=== PATIENT | female | born 1940 | race Caucasian/White ===

== ENCOUNTER 2019-01-09 03:38 | Emergency (ER) | payer MEDICARE ==
[~2019-01-09] VITALS: Ht 162.6 cm; Wt 63.5 kg
[2019-01-09] MEDS ORDERED: SODIUM CHLORIDE 0.9% 1,000 ML IV ONE (04:00)
[2019-01-09 05:51] LABS: Basophils # (auto) 0 uL; Basophils % (auto) 0.5 % (0.0-2.0); Eosinophils # (auto) 0.1 uL; Eosinophils % (auto) 1.4 % (0.0-7.0); Hematocrit 40.3 % (36.0-46.0); Lymphocytes # (auto) 0.2 uL; Lymphocytes % (auto) 2.9 % (10.0-50.0); Mean Corpuscular Hgb Conc. 32.3 g/dL (32.0-36.0); Mean Corpuscular Volume 83.6 fL (80.0-100.0); Monocytes # (auto) 0.4 uL; Monocytes % (auto) 6.3 % (0.0-12.0); Neutrophils # (auto) 5.6 uL; Neutrophils % (auto) 88.9 % (37.0-80.0); Platelet Count (auto) 148 10^3/uL (140-450); Red Blood Cells 4.82 10^6/uL (4.0-5.20); White Blood Cell 6.3 10^3/uL (4.4-10.8)
[2019-01-09 06:06] LABS: Chloride 109 mmol/L (98-107); INR 0.98 (0.9-1.15); Partial Thromboplastin Time 29.6 sec (23.78-33.04); Prothrombin Time 10.5 sec (9.27-12.13); Sodium 141 mmol/L (136-145)
[2019-01-09 06:09] LABS: Albumin 2.8 g/dL (3.4-5.0); Anion Gap 8 (5-15); Blood Urea Nitrogen 14 mg/dL (7-18); Carbon Dioxide 24 mmol/L (21-32); Glucose 88 mg/dL (74-106)
[2019-01-09 06:14] LABS: Alanine Aminotransferase 14 U/L (13-56); Alkaline Phosphatase 78 U/L (45-117); Aspartate Aminotransferase 14 U/L (15-37); BUN/Creatinine Ratio 14.9; Bilirubin, Total 0.3 mg/dL (0.2-1.0); GFR African American 74 mL/min; GFR Non-African American 62 mL/min; Total Protein 6.1 g/dL (6.4-8.2)
[2019-01-09 11:07] LABS: Urine Bacteria MOD /hpf (None Seen); Urine Blood Negative /uL (Negative); Urine Budding Yeast OCCASIONAL /hpf (None Seen); Urine Mucus FEW (None Seen); Urine Specific Gravity 1.014 (1.001-1.035); Urine WBC 35 /hpf (0 - 5)
[2019-01-09 11:12] LABS: Alcohol, Urine < 3.0 mg/dL (0-5); Amphetamine Screen, Urine NEGATIVE (NEGATIVE); Barbiturate Scree,Urine NEGATIVE (NEGATIVE); Benzodiazephine Screen, Urine NEGATIVE (NEGATIVE); Cannabinoid Screen, Urine NEGATIVE (NEGATIVE); Cocaine Screen, Urine NEGATIVE (NEGATIVE); Opiate Scree,Urine NEGATIVE (NEGATIVE); Phencyclidine Screen, Urine NEGATIVE (NEGATIVE)
[2019-01-09] MEDS ORDERED: cefTRIAXone 1GM/50ML D5W 50 ML IV ONE (12:00)
[2019-01-09 12:24] VITALS: BP 120/52
== END 2019-01-09 13:50 | disposition home or self-care (01) ==
LOC: EDBD 03:38 → ER 03:43
DX: N39.0 Urinary tract infection, site not specified (principal); E05.90 Thyrotoxicosis, unspecified without thyrotoxic crisis or storm; E46 Unspecified protein-calorie malnutrition; E78.5 Hyperlipidemia, unspecified; J44.9 Chronic obstructive pulmonary disease, unspecified; F17.210 Nicotine dependence, cigarettes, uncomplicated; Z68.24 Body mass index [BMI] 24.0-24.9, adult; Z90.49 Acquired absence of other specified parts of digestive tract; Z90.710 Acquired absence of both cervix and uterus
CPT/HCPCS: 36415; 71045; 80053; 80307; 81001; 83605; 83880; 84443; 84484; 85025; 85610; 85730; 87040; 87804; 93005; 94761; 96365; 96366; 99284; J0696; J7030